=== PATIENT | female | born 1955 | race Caucasian/White ===

== ENCOUNTER 2016-09-02 09:53 | Inpatient (IN) ==
[2016-09-02] MEDS ORDERED: SODIUM CHLORIDE 0.9% 500 ML IV STA (10:24)
[2016-09-02 10:34] LABS: Basophils # 0.1 10*3/uL (0.0-0.2); Basophils % 0.2 % (0.0-0.8); Hematocrit 36.9 VOL% (35.7-47.0); Hemoglobin 12.5 GM/DL (12.0-16.0); Immature Granulocytes % 0.8 %; Immature Granulocytes Absolute 0.22 #; Lymphocytes # 1.1 10*3/uL (1.4-4.0); Mean Corpuscular HGB Conc 33.9 GM/DL (32-36); Mean Corpuscular Hemoglobin 31 PG (27-34); Mean Corpuscular Volume 92.3 FL (87-102); Mean Platelet Volume 9.6 FL (9.6-12.0); Neutrophils # 24.8 10*3/uL (1.4-7.4); Platelet Count 323 10*3/uL (130-400); Red Cell Distribution Width 14.4 % (9.3-17.3); White Blood Count 28.1 10*3/uL (4.5-13.71)
[2016-09-02 10:40] LABS: Band Neutrophils 8 % (0-10); Lymphocytes 3 % (20-55); Platelet Estimate Normal; Segmented Neutrophils 86 % (50-85); Total Cells Counted 100
[2016-09-02] MEDS ORDERED: VANCOMYCIN INJ 1,000 MG in SODIUM CHLORIDE 0.9% 250 ML IV STA (10:56)
--- NOTE | 2016-09-02 11:06 | XRay Report ---
XR chest 1V portable Indication: Shortness of breath and fever. Chest one view: Comparison 01/18/2016. Patchy infiltrate left lung base is present. Right lung is clear. Heart size and mediastinal contour are within normal limits. Impression: Left basilar pneumonia. PROCEDURE INTERPRETED AT [facility] DEPARTMENT OF RADIOLOGY Final Report Signed by: Juan Carlos Miller M.D.
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
[2016-09-02] MEDS ORDERED: VANCOMYCIN 1,000 MG VIAL ONE (11:19)
[2016-09-02 11:21] LABS: Albumin 1.9 G/DL (3.4-5.0); Bilirubin,Total 0.5 MG/DL (0.2-1.0); Calcium 7.9 MG/DL (8.5-10.1); Osmolality,Calculated 296.3 MOS/KG (273-304); Potassium 3.4 MMOL/L (3.5-5.1); Total Protein 5.5 G/DL (6.4-8.3)
--- NOTE | 2016-09-02 11:38 | Hospitalist History & Physical ---
Assessment and Plan (1) Left pulmonary infiltrate on CXR Status: Acute Assessment and plan: No evidence of pulmonary contusion etc. Vigorous WBC response without fever. Current Visit: Yes (2) Chronic kidney disease with end stage renal failure on dialysis Status: Chronic Assessment and plan: Skilled Nursing dialysis with missed dialysis Thursday due to access malfunction. Euvolemic (to slightly volume contracted) with encephalopathic features. Current Visit: Yes (3) Falls frequently Status: Chronic Assessment and plan: Anxiety disorder, sedative use Current Visit: Yes History of Present Illness History of present illness: Ms. 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 She has chronic problems with falls but denies any recent thoracic injury. Today was found awake and on floor. Patient states another fall without loss of consciousness or injury. Very weak and brought to ER where initial recorded SBP was low. CXR shows opacity in left posterior lobe with blood work showing leukocytosis. She is non-smoker without cough, fever. chills. She did vomit twice last evening without abdominal pain. Home Medications Medication Instructions Recorded Confirmed Type ALPRAZolam [Xanax] 0.5 mg PO BEDTIME 01/18/16 01/24/16 History Amitriptyline [Elavil] 150 mg PO BEDTIME 01/18/16 01/24/16 History Cinacalcet [Sensipar] 30 mg PO DAILY 01/18/16 01/24/16 History Famotidine Tab [Pepcid Tab] 20 mg PO DAILY 01/18/16 01/24/16 History Metoprolol Succinate Xl [Toprol Xl] 50 mg PO BEDTIME 01/18/16 01/24/16 History Mirtazapine [Remeron] 45 mg PO BEDTIME 01/18/16 01/24/16 History Morphine Sulfate 30 mg PO BID 01/18/16 01/24/16 History Oxycodone HCl 10 mg PO DIRECTED PRN 01/18/16 01/24/16 History Verapamil Tab [Calan Tab] 180 mg PO BEDTIME 01/18/16 01/24/16 History Allergies Allergy/AdvReac Type Severity Reaction Status Date / Time Sulfa (Sulfonamide Allergy Severe Swelling Verified 01/24/16 06:18 Antibiotics) of Lip/Tongue/Throat prednisone AdvReac Intermediate MENTAL Verified 01/24/16 06:18 STATUS CHANGE Medical,Surgical,& Family Hx - Medical History Cardio: History of: Hypertension (10 years) Psychological: History of: Anxiety Disorders Renal: History of: Renal Problems (remote nephrolithiasis) Gastrointestinal: History of: GERD Musculoskeletal: History of: Musculoskeletal Problems (Chronic axial skeletal pain) - Surgical History Abdominal Surgeries: Surgical HX of: Abdominal Surgery (colon resected for stricture disease), Cholecystectomy Reproductive Surgeries: Surgical HX of;: Hysterectomy - Social History Smoking Status: Never smoker Frequency of Alcohol Use: None Type of Drug Use: None - Constitutional Constitutional: Present: anorexia, frequent falls, weakness. Absent: chills, fever(s) - Cardiovascular Cardiovascular: Absent: chest pain at rest, dyspnea, edema, palpitations - Respiratory Respiratory: Absent: cough, dyspnea, hemoptysis, wheezing - Gastrointestinal Gastrointestinal: Absent: abdominal pain, change in bowel habits, diarrhea, hematemesis, hematochezia - Neurological Neurological: Present: disequilibrium, dizziness. Absent: convulsions, syncope - Psychiatric Psychiatric: Present: anxiety Exam - Constitutional Vitals: Period Temp Pulse Resp BP Sys/Sanchez Pulse Ox Last 24 Hr 97.7 F-97.7 F 91-91 18-18 78-78/49-49 93 General appearance: normal weight - Neck Neck exam: Absent: lymphadenopathy, thyromegaly - Respiratory Respiratory exam: Present: rales (left base without egophony). Absent: rhonchi , wheezes - Cardiovascular Cardiovascular exam: Present: regular rate and rhythm, systolic murmur (2/6 aortic murmur) - GI/Abdominal GI/Abdominal exam: Present: normal bowel sounds. Absent: distended, organomegaly, tenderness - Extremities Exam Extremities exam: Absent: edema - Neurological Exam Neurological exam: Present: alert, oriented X3, other (myoclonic jerking with asterixsis) - Psychiatric Psychiatric exam: Present: normal affect, normal mood Results - Labs CBC & BMP: 09/02/16 10:23 09/02/16 10:23 - Diagnostic Findings Procedure: Chest x-ray: image reviewed by me (Normal vascularity, posterior left lung infiltrate)
[2016-09-02] MEDS ORDERED: SODIUM CHLORIDE 0.9% 500 ML IV ONE (13:31)
[2016-09-02] MEDS ORDERED: SODIUM CHLORIDE 0.9% 1,000 ML IV ONE (14:04)
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
--- NOTE | 2016-09-02 14:56 | Operative Note ---
Date of procedure: 09/02/16 Pre-op diagnosis: clotted AV access Post-op diagnosis: same Procedure: Preoperative diagnosis Clotted AV access Postoperative diagnosis Same Procedures performed Left common femoral vein straight hemodialysis catheter placement Ultrasound guidance and interpretation of images Findings Left common femoral vein is compressible was accessed with a needle. Ultrasound was used to confirm venous placement of the wire and was also confirmed by return of nonpulsatile venous blood. Seldinger technique was used to place a non-tunneled dialysis catheter. Complications None apparent Specimens None Anesthesia 10 mL 1% lidocaine local Indications Clotted AV access Description of procedure The patient was placed in her ICU bed in the supine position. The ultrasound was used to identify the vascular structures in the left groin and the common femoral vein appeared compressible. The left groin was then prepped and draped sterilely with chlorhexidine. Sterile barrier precautions were used. A timeout was called. Ultrasound was used to identify the common femoral vein and local anesthetic was administered. The vein was accessed with a needle and nonpulsatile venous blood was returned. Wire was passed easily into the venous system and the needle was removed over the wire. Incision was made alongside the wire with an 11 blade scalpel and a dilator was used with Seldinger technique to dilate the subcutaneous tissues. A dialysis catheter was then placed over the wire and threaded easily. Both ports returned blood easily after the wire was removed. An additional accessory port was also accessed and returned blood easily. The catheter was flushed with saline and then a heparin lock was performed. Catheter was sewn in place with 3-0 silk sutures and a Biopatch sterile dressing was placed a Tegaderm. The patient tolerated the procedure well. Postoperative plan Resuming hemodialysis Implants: 20cm straight hemodialysis catheter Anesthesia: local Surgeon / Physician: Jorge Gaston Estimated blood loss: none Specimens: none sent Condition: critical Disposition: no change Results - Labs CBC & BMP: 09/02/16 10:23 09/02/16 10:23 Discharge Plan - Discharge Medications No Action Cinacalcet [Sensipar] 30 mg PO DAILY Oxycodone HCl 10 mg PO DIRECTED PRN PRN Reason: Pain Morphine Sulfate 30 mg PO BID Verapamil Tab [Calan Tab] 180 mg PO BEDTIME Famotidine Tab [Pepcid Tab] 20 mg PO DAILY Mirtazapine [Remeron] 45 mg PO BEDTIME Metoprolol Succinate Xl [Toprol Xl] 50 mg PO BEDTIME Amitriptyline [Elavil] 150 mg PO BEDTIME ALPRAZolam [Xanax] 0.5 mg PO BEDTIME - Follow Up or Referral - Forms/Instructions
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
[2016-09-02] MEDS ORDERED: HEPARIN 10,000 UNIT/10 ML VIAL IV SCH (16:30)
[2016-09-02] MEDS ORDERED: HEPARIN 10,000 UNIT/10 ML VIAL IV ONE (17:00)
[2016-09-02] MEDS: cefTRIAXone 1,000 MG in SODIUM CHLORIDE 0.9% 100 ML IV SCH (17:10)
--- NOTE | 2016-09-02 17:55 | Dialysis Note ---
Dialysis Note - Dialysis Note Pt seen on dialysis. More alert. Still hypotensive. Rocephin infusing. Myoclonic jerks less frequent. Continue routine sepsis protocol. Bld cultures pending. Next scheduled routine CHD on .
[2016-09-02] MEDS ORDERED: VERAPAMIL SR 180 MG TABLET PO SCH (21:00)
[2016-09-02] MEDS ORDERED: MORPHINE ER 30 MG TABLET PO SCH (21:00)
[2016-09-02] MEDS ORDERED: AMITRIPTYLINE 100 MG TABLET PO SCH (21:00)
[2016-09-02] MEDS: MIRTAZAPINE 15 MG TABLET PO SCH (21:19)
[2016-09-02] MEDS: ALPRAZolam 0.5 MG TABLET PO SCH (21:24)
[2016-09-03] MEDS: PHENYLEPHRINE DRIP 40 MG/250 ML PREMIX IV SCH ×2 (01:20→17:56)
[2016-09-03 06:17] LABS: Basophils % 0.1 % (0.0-0.8); Hematocrit 36.1 VOL% (35.7-47.0); Hemoglobin 12.2 GM/DL (12.0-16.0); Immature Granulocytes % 0.6 %; Immature Granulocytes Absolute 0.15 #; Lymphocytes # 1.3 10*3/uL (1.4-4.0); Lymphocytes % 5.3 % (21.3-54.2); Mean Corpuscular HGB Conc 33.8 GM/DL (32-36); Mean Corpuscular Hemoglobin 32 PG (27-34); Mean Corpuscular Volume 93.3 FL (87-102); Mean Platelet Volume 9.5 FL (9.6-12.0); Monocytes # 1.8 10*3/uL (0.11-0.8); Monocytes % 7.2 % (1.7-12.7); Neutrophils # 21.9 10*3/uL (1.4-7.4); Neutrophils % 86.8 % (38.7-73.9); Platelet Count 251 10*3/uL (130-400); Red Blood Count 3.87 10*6/uL (3.8-5.5); Red Cell Distribution Width 14.6 % (9.3-17.3); White Blood Count 25.2 10*3/uL (4.5-13.71)
[2016-09-03 06:42] LABS: Band Neutrophils 6 % (0-10); Burr Cells Slight; Elliptocytes Few; Hypochromasia 1+; Lymphocytes 3 % (20-55); Platelet Estimate Adequate; Segmented Neutrophils 84 % (50-85); Total Cells Counted 100
[2016-09-03 08:45] LABS: Albumin 1.8 G/DL (3.4-5.0); Calcium 8.7 MG/DL (8.5-10.1); Osmolality,Calculated 282.7 MOS/KG (273-304); Phosphorous 3.8 MG/DL (2.5-4.9); Potassium 3.1 MMOL/L (3.5-5.1)
[2016-09-03] MEDS: CINACALCET 30 MG TABLET PO SCH (09:14)
[2016-09-03] MEDS: FAMOTIDINE 20 MG TABLET PO SCH (09:14)
--- NOTE | 2016-09-03 09:21 | Hospitalist Progress Note ---
Assessment and Plan (1) Left pulmonary infiltrate on CXR Status: Acute Assessment and plan: Impression: #1. Left lower lobe infiltrate, probable pneumonia #2. End-stage renal disease #3. Dialysis access failure #4. Chronic pain #5. Hypotension, pressor dependent #6. Pressure ulcer, present on admission Plan: Skin care consult for evaluation of the pressure ulcer. Continue vasopressors for now. Await surgical decision regarding timing of vascular access revision. Continue antibiotics for pulmonary infiltrate. Current Visit: Yes Hospitalist: Subjective Interval history: Follow-up end-stage renal disease, pneumonia, and chronic pain. The patient says that she is thirsty. Apparently, her dialysis access has clotted, and there is a possibility of access revision today. She's had some cough and some mild dyspnea. She has not had any sputum production. There is no fever at home. Exam - Constitutional Vitals: Period Temp Pulse Resp BP Sys/Sanchez Pulse Ox Last 24 Hr 97.2 F-98.7 F 90-124 12-23 74-126/42-81 93-100 Blood pressure remains pressor dependent. Heart is regular with no murmur or gallop. Chest is fairly clear. Abdomen is soft without any mass or tenderness. She has an irregular pressure ulcer that appears to be stage II or 3 at the coccyx. Results - Labs CBC & BMP: 09/03/16 05:22 09/03/16 05:22 Lab Results: I have reviewed the past 24 hour labs Specialty Discharge - Follow Up or Referrals - Discharge Medications No Action Cinacalcet [Sensipar] 30 mg PO DAILY Oxycodone HCl 10 mg PO DIRECTED PRN PRN Reason: Pain Morphine Sulfate 30 mg PO BID Verapamil Tab [Calan Tab] 180 mg PO BEDTIME Famotidine Tab [Pepcid Tab] 20 mg PO DAILY Mirtazapine [Remeron] 45 mg PO BEDTIME Metoprolol Succinate Xl [Toprol Xl] 50 mg PO BEDTIME Amitriptyline [Elavil] 150 mg PO BEDTIME ALPRAZolam [Xanax] 0.5 mg PO BEDTIME
--- NOTE | 2016-09-03 09:57 | Physician Query Form ---
CLICK EDIT DOCUMENT TO SELECT QUERY ANSWER --> OK --> SIGN Agustina Sanders RN, CCDS Certified Clinical Blood Donor Unit Assistant W) [phone] (f) [phone] [email or web address] PROVIDERS: Make your selection(s) from the choices in EACH section by typing an "x" and enter comments in the comment section. Please use your independent medical judgment in providing your response. This request does not imply that any particular answer is desired or expected. CLINICAL INDICATORS: (Providers should not edit this section) The medical record indicates that the patient was admitted with Sepsis, BP of 78 /49, later the patient was given 1500 cc bolus, on the : Hypotension is mentioned and the patient was placed on ANDERS. Please clarify which, if any, of the following is the etiology of the above symptoms and treatment rendered: ( ) Septic shock ( ) Hypovolemic shock ( ) Cardiogenic shock ( ) Hemorrhagic shock ( ) Traumatic shock ( ) Shock due to, please specify etiology: ( ) Shock, unknown etiology ( ) Drug induced, please specify substance: ( ) Iatrogenic Hypotension ( ) Orthostatic Hypotension ( x) Hypotension, unknown etiology ( ) Other, please specify: ( ) Clinically unable to determine COMMENTS: Use of terms such as suspected, likely, or probable (associated with a specific diagnosis that is being evaluated, monitored, or treated as if it exists) are acceptable and can be restated in the discharge summary if not ruled out. MTDD
--- NOTE | 2016-09-03 10:24 | EKG Report ---
Stationary ECG Study [facility] ER Test Date: 09/02/2016 9:59:26 AM Pat Name: CHASE NAVA Department: Room: 122 Gender: F Cash Accounting Clerk: MILAN : 1955 Requested by: Elijah Peralta Order Number: [id number] Reading MD: DAVID WELDON Intervals [place] Rate: 91 P: 53 VA: 189 QRS: 14 QRSD: 90 T: 32 QT: 378 QTc: 427 Interpretive Statements SINUS RHYTHM at 91 bpm Suggests old anterior myocardial infarction possible old inferior myocardial infarction NST Electronically Signed On 09-03-16 15:54:36 [employer] by DAVID WELDON [email or web address]
[2016-09-03] MEDS: oxyCODONE IR 5 MG TABLET PO PRN ×2 (10:54→20:10)
--- NOTE | 2016-09-03 13:02 | Nephrology Progress Note ---
Nephrology - PN: Subj Interval history: Pt still requiring some pressor support this am. HD yesterday, euvolemic, myoclonic jerks resolved. Pt more alert today. Denies pain. Exam (PN)-Nephrology - Vital Signs Vital signs: Period Temp Pulse Resp BP Sys/Sanchez Pulse Ox Last 24 Hr 97.2 F-98.7 F 90-124 12-24 74-126/42-81 93-100 - General Appearance General appearance: well-developed, chronically ill EENT: ATNC, PERRL Neck: no JVD, no thyromegaly Cardiology: no murmurs, no rub, no edema Gastrointestinal: normoactive bowel sounds, no tenderness Integumentary: no rash, warm and dry Neurologic: no focal deficit, no asterixis, alert and oriented x3 Musculoskeletal: no deformities, no erythema Psychiatric: mood/affect appropriate, cooperative - Lab 09/03/16 05:22 09/03/16 05:22 Most recent lab results Calcium 8.7 MG/DL (8.5-10.1) 09/03/16 05:22 Phosphorus 3.8 MG/DL (2.5-4.9) 09/03/16 05:22 Assessment and Plan (1) Sepsis Problem details: No acute indication for dialysis today. Status: Acute Assessment and plan: Continue empiric antibiotics pending culture results. Surgery for clotted/? infected graft when stable. Current Visit: Yes (2) Chronic kidney disease with end stage renal failure on dialysis Problem details: Uremic symptoms of myoclonus. HD today, no UF Status: Chronic Current Visit: Yes (3) Clotted renal dialysis AV graft Status: Acute Current Visit: Yes Specialty Discharge - Follow Up or Referrals - Discharge Medications No Action Cinacalcet [Sensipar] 30 mg PO DAILY Oxycodone HCl 10 mg PO DIRECTED PRN PRN Reason: Pain Morphine Sulfate 30 mg PO BID Verapamil Tab [Calan Tab] 180 mg PO BEDTIME Famotidine Tab [Pepcid Tab] 20 mg PO DAILY Mirtazapine [Remeron] 45 mg PO BEDTIME Metoprolol Succinate Xl [Toprol Xl] 50 mg PO BEDTIME Amitriptyline [Elavil] 150 mg PO BEDTIME ALPRAZolam [Xanax] 0.5 mg PO BEDTIME
[2016-09-03] MEDS: cefTRIAXone 1,000 MG in SODIUM CHLORIDE 0.9% 100 ML IV SCH (17:54)
[2016-09-03] MEDS: MIRTAZAPINE 15 MG TABLET PO SCH (20:09)
[2016-09-03] MEDS: ALPRAZolam 0.5 MG TABLET PO SCH (20:11)
[2016-09-03] MEDS ORDERED: AMITRIPTYLINE 50 MG TABLET PO SCH (21:00)
[2016-09-04] MEDS ORDERED: VANCOMYCIN INJ 1,000 MG in SODIUM CHLORIDE 0.9% 250 ML IV ONE ×2 (06:05→09:00)
[2016-09-04] MEDS ORDERED: GENTAMICIN INJ 80 MG in PREMIX 1 EACH IV ONE ×2 (06:06→11:00)
[2016-09-04 06:09] LABS: Albumin 1.7 G/DL (3.4-5.0); Calcium 8.1 MG/DL (8.5-10.1); Osmolality,Calculated 289.7 MOS/KG (273-304); Potassium 3.3 MMOL/L (3.5-5.1)
--- NOTE | 2016-09-04 06:32 | Nephrology Progress Note ---
Nephrology - PN: Subj Interval history: The patient is awake and alert states she's feeling okay. However, she remains on pressor medications. UVC is noted to be elevated. Blood cultures have been negative. Exam (PN)-Nephrology - Vital Signs Vital signs: Period Temp Pulse Resp BP Sys/Sanchez Pulse Ox Last 24 Hr 97.7 F-98.6 F 90-112 15-24 81-141/52-82 94-100 - General Appearance General appearance: well-developed, well-nourished EENT: ATNC Neck: supple Respiratory: clear Cardiology: regular rate, regular rhythm Gastrointestinal: normoactive bowel sounds, no tenderness Neurologic: alert and oriented x3 Musculoskeletal: no clubbing Psychiatric: mood/affect appropriate - Lab 09/03/16 05:22 09/04/16 05:21 Most recent lab results Calcium 8.1 MG/DL (8.5-10.1) L 09/04/16 05:21 Phosphorus 3.0 MG/DL (2.5-4.9) 09/04/16 05:21 Assessment and Plan (1) Chronic kidney disease with end stage renal failure on dialysis Problem details: Uremic symptoms of myoclonus. HD today, no UF Status: Chronic Assessment and plan: Continue with scheduled hemodialysis. Dialysis today. We'll give 1 g of vancomycin 80 object today. Current Visit: Yes (2) Clotted renal dialysis AV graft Status: Acute Current Visit: Yes (3) Left pulmonary infiltrate on CXR Status: Acute Assessment and plan: Pneumonia noted. Current Visit: Yes (4) Sepsis Problem details: No acute indication for dialysis today. Status: Acute Current Visit: Yes (5) Pneumonia Status: Acute Assessment and plan: Currently on broad-spectrum antibiotics continues to have leukocytosis. Current Visit: Yes Specialty Discharge - Follow Up or Referrals - Discharge Medications No Action Cinacalcet [Sensipar] 30 mg PO DAILY Oxycodone HCl 10 mg PO DIRECTED PRN PRN Reason: Pain Morphine Sulfate 30 mg PO BID Verapamil Tab [Calan Tab] 180 mg PO BEDTIME Famotidine Tab [Pepcid Tab] 20 mg PO DAILY Mirtazapine [Remeron] 45 mg PO BEDTIME Metoprolol Succinate Xl [Toprol Xl] 50 mg PO BEDTIME Amitriptyline [Elavil] 150 mg PO BEDTIME ALPRAZolam [Xanax] 0.5 mg PO BEDTIME
[2016-09-04 07:27] LABS: Basophils % 0.1 % (0.0-0.8); Eosinophils % 0.1 % (0.00-10.9); Hematocrit 38.2 VOL% (35.7-47.0); Hemoglobin 12.5 GM/DL (12.0-16.0); Immature Granulocytes % 0.6 %; Immature Granulocytes Absolute 0.11 #; Lymphocytes # 1.2 10*3/uL (1.4-4.0); Lymphocytes % 6.3 % (21.3-54.2); Mean Corpuscular HGB Conc 32.7 GM/DL (32-36); Mean Corpuscular Hemoglobin 31 PG (27-34); Mean Corpuscular Volume 94.3 FL (87-102); Mean Platelet Volume 9.3 FL (9.6-12.0); Monocytes # 1.1 10*3/uL (0.11-0.8); Monocytes % 6.1 % (1.7-12.7); Neutrophils % 86.8 % (38.7-73.9); Platelet Count 228 10*3/uL (130-400); Red Blood Count 4.05 10*6/uL (3.8-5.5); Red Cell Distribution Width 14.5 % (9.3-17.3); White Blood Count 18.5 10*3/uL (4.5-13.71)
--- NOTE | 2016-09-04 08:44 | Hospitalist Progress Note ---
Assessment and Plan (1) Left pulmonary infiltrate on CXR Status: Acute Assessment and plan: Impression: #1. Left lower lobe infiltrate, probable pneumonia #2. End-stage renal disease #3. Dialysis access failure #4. Chronic pain #5. Hypotension, pressor dependent #6. Pressure ulcer, present on admission Plan: Continue current care. We're awaiting revision of her access device. She will need to stay in the ICU as long as she is receiving vasopressors. Current Visit: Yes Hospitalist: Subjective Interval history: Follow-up pneumonia, end-stage renal disease, and chronic pain. The patient says that she feels better. She apparently did not have her graft declotted today, and I don't see that she is on the schedule for that today either. She remains pressor dependent, although her systolic blood pressure is around 120 currently. She offers no complaints, except to say that she is hungry. She continues on antibiotics for the pneumonia. Exam - Constitutional Vitals: Period Temp Pulse Resp BP Sys/Sanchez Pulse Ox Last 24 Hr 97.8 F-98.8 F 90-112 15-24 81-141/55-82 94-100 She remains afebrile. Heart is regular with a 2/6 systolic murmur. Chest is fairly clear. Results - Labs CBC & BMP: 09/04/16 06:26 09/04/16 05:21 Lab Results: I have reviewed the past 24 hour labs Specialty Discharge - Follow Up or Referrals - Discharge Medications No Action Cinacalcet [Sensipar] 30 mg PO DAILY Oxycodone HCl 10 mg PO DIRECTED PRN PRN Reason: Pain Morphine Sulfate 30 mg PO BID Verapamil Tab [Calan Tab] 180 mg PO BEDTIME Famotidine Tab [Pepcid Tab] 20 mg PO DAILY Mirtazapine [Remeron] 45 mg PO BEDTIME Metoprolol Succinate Xl [Toprol Xl] 50 mg PO BEDTIME Amitriptyline [Elavil] 150 mg PO BEDTIME ALPRAZolam [Xanax] 0.5 mg PO BEDTIME
[2016-09-04] MEDS: FAMOTIDINE 20 MG TABLET PO SCH (08:55)
[2016-09-04] MEDS: CINACALCET 30 MG TABLET PO SCH (08:56)
[2016-09-04] MEDS: oxyCODONE IR 5 MG TABLET PO PRN ×2 (08:59→21:57)
[2016-09-04] MEDS ORDERED: oxyCODONE IR 5 MG TABLET PO PRN (13:26)
--- NOTE | 2016-09-04 16:24 | Dialysis Note ---
Dialysis Note - Dialysis Note This patient seen on dialysis she's tolerating the procedure blood pressure is 122/80.
[2016-09-04] MEDS: cefTRIAXone 1,000 MG in SODIUM CHLORIDE 0.9% 100 ML IV SCH (17:23)
[2016-09-04] MEDS: AMITRIPTYLINE 25 MG TABLET PO SCH (21:57)
[2016-09-04] MEDS: ALPRAZolam 0.5 MG TABLET PO SCH (21:57)
[2016-09-04] MEDS: MIRTAZAPINE 15 MG TABLET PO SCH (21:57)
[2016-09-04] MEDS: PHENYLEPHRINE DRIP 40 MG/250 ML PREMIX IV SCH (21:58)
[2016-09-05] MEDS: PHENYLEPHRINE DRIP 40 MG/250 ML PREMIX IV SCH (05:59)
--- NOTE | 2016-09-05 06:42 | Nephrology Progress Note ---
Nephrology - PN: Subj Interval history: Patient is resting comfortably. She was able to tolerate dialysis on yesterday. Her blood pressure has been stable off pressors. No fevers. Exam (PN)-Nephrology - Vital Signs Vital signs: Period Temp Pulse Resp BP Sys/Sanchez Pulse Ox Last 24 Hr 98 F-98.8 F 95-114 15-27 96-132/61-98 93-100 - General Appearance General appearance: well-developed, well-nourished EENT: ATNC Neck: supple Respiratory: clear Cardiology: no edema, regular rate, regular rhythm Gastrointestinal: normoactive bowel sounds, no tenderness Neurologic: CN 3-12 intact Musculoskeletal: no clubbing Psychiatric: mood/affect appropriate - Lab 09/04/16 06:26 09/04/16 05:21 Most recent lab results Calcium 8.1 MG/DL (8.5-10.1) L 09/04/16 05:21 Phosphorus 3.0 MG/DL (2.5-4.9) 09/04/16 05:21 Assessment and Plan (1) Chronic kidney disease with end stage renal failure on dialysis Problem details: Uremic symptoms of myoclonus. HD today, no UF Status: Chronic Assessment and plan: Continue with scheduled hemodialysis. Current Visit: Yes (2) Clotted renal dialysis AV graft Status: Acute Current Visit: Yes (3) Left pulmonary infiltrate on CXR Status: Acute Assessment and plan: Pneumonia noted. Current Visit: Yes (4) Sepsis Problem details: No acute indication for dialysis today. Status: Acute Current Visit: Yes (5) Pneumonia Status: Acute Assessment and plan: Currently on broad-spectrum antibiotics Current Visit: Yes Specialty Discharge - Follow Up or Referrals - Discharge Medications No Action Cinacalcet [Sensipar] 30 mg PO DAILY Oxycodone HCl 10 mg PO DIRECTED PRN PRN Reason: Pain Morphine Sulfate 30 mg PO BID Verapamil Tab [Calan Tab] 180 mg PO BEDTIME Famotidine Tab [Pepcid Tab] 20 mg PO DAILY Mirtazapine [Remeron] 45 mg PO BEDTIME Metoprolol Succinate Xl [Toprol Xl] 50 mg PO BEDTIME Amitriptyline [Elavil] 150 mg PO BEDTIME ALPRAZolam [Xanax] 0.5 mg PO BEDTIME
[2016-09-05 06:49] LABS: Basophils % 0.2 % (0.0-0.8); Eosinophils # 0.1 10*3/uL (0.0-0.87); Eosinophils % 0.7 % (0.00-10.9); Hematocrit 36.5 VOL% (35.7-47.0); Immature Granulocytes % 0.6 %; Immature Granulocytes Absolute 0.08 #; Lymphocytes % 7.6 % (21.3-54.2); Mean Corpuscular HGB Conc 32.9 GM/DL (32-36); Mean Corpuscular Hemoglobin 31 PG (27-34); Mean Corpuscular Volume 92.6 FL (87-102); Mean Platelet Volume 9.5 FL (9.6-12.0); Monocytes # 1.1 10*3/uL (0.11-0.8); Monocytes % 8.2 % (1.7-12.7); Neutrophils % 82.7 % (38.7-73.9); Platelet Count 207 10*3/uL (130-400); Red Blood Count 3.94 10*6/uL (3.8-5.5); Red Cell Distribution Width 14.5 % (9.3-17.3); White Blood Count 13.3 10*3/uL (4.5-13.71)
[2016-09-05 07:19] LABS: Albumin 1.7 G/DL (3.4-5.0); Calcium 8.4 MG/DL (8.5-10.1); Osmolality,Calculated 287.8 MOS/KG (273-304); Phosphorous 2.4 MG/DL (2.5-4.9); Potassium 3.3 MMOL/L (3.5-5.1)
--- NOTE | 2016-09-05 08:50 | Hospitalist Progress Note ---
Assessment and Plan (1) Left pulmonary infiltrate on CXR Status: Acute Assessment and plan: Impression: #1. Left lower lobe infiltrate, probable pneumonia #2. End-stage renal disease #3. Dialysis access failure #4. Chronic pain #5. Hypotension, now resolved. Probably related to pneumonia. After further study, she was probably in septic shock from the pneumonia when she presented to the hospital #6. Pressure ulcer, present on admission Plan: Recheck chest x-ray. Transfer to floor. Continue dialysis per nephrology. Will notify surgery that her infection is improving, and they may consider dialysis access revision. Current Visit: Yes Hospitalist: Subjective Interval history: Follow-up probable left lower lobe pneumonia, end-stage renal disease, dialysis access failure, chronic pain, and pressure ulcer. The patient continues to improve. She is off of vasopressors now. Her white count is trending down. She continues on dialysis. It does not appear that surgery has seen her for consideration of access revision. In any event, she appears stable enough to transfer to the floor. She is tolerating a diet. She denies any worsening cough or dyspnea. Exam - Constitutional Vitals: Period Temp Pulse Resp BP Sys/Sanchez Pulse Ox Last 24 Hr 97.7 F-98.2 F 95-114 15-27 96-132/61-98 93-100 She remains afebrile. Heart is regular with no murmur or gallop. Lungs are fairly clear. Abdomen is soft with no mass or tenderness. Results - Labs CBC & BMP: 09/05/16 05:53 09/05/16 05:53 Lab Results: I have reviewed the past 24 hour labs Specialty Discharge - Follow Up or Referrals - Discharge Medications No Action Cinacalcet [Sensipar] 30 mg PO DAILY Oxycodone HCl 10 mg PO DIRECTED PRN PRN Reason: Pain Morphine Sulfate 30 mg PO BID Verapamil Tab [Calan Tab] 180 mg PO BEDTIME Famotidine Tab [Pepcid Tab] 20 mg PO DAILY Mirtazapine [Remeron] 45 mg PO BEDTIME Metoprolol Succinate Xl [Toprol Xl] 50 mg PO BEDTIME Amitriptyline [Elavil] 150 mg PO BEDTIME ALPRAZolam [Xanax] 0.5 mg PO BEDTIME
[2016-09-05] MEDS: CINACALCET 30 MG TABLET PO SCH (09:07)
[2016-09-05] MEDS: FAMOTIDINE 20 MG TABLET PO SCH (09:07)
[2016-09-05] MEDS: oxyCODONE IR 5 MG TABLET PO PRN (16:42)
[2016-09-05] MEDS: cefTRIAXone 1,000 MG in SODIUM CHLORIDE 0.9% 100 ML IV SCH (16:44)
--- NOTE | 2016-09-05 16:58 | XRay Report ---
XR chest 1V portable Indication: Cough. Comparison: Chest x-ray 09/02/2016 Technique: Portable AP chest was performed. Findings: Airspace opacities in the left lung base overlying the left hemidiaphragm has worsened since the comparison study suggesting worsening atelectasis and/or infection. Chest is otherwise stable. Lungs otherwise are clear. Impression: 1. Worsening atelectasis and/or infection within the left lung base is suggested. 09/05/2016 4:55 PM PROCEDURE INTERPRETED AT [facility] DEPARTMENT OF RADIOLOGY Final Report Signed by: Dr. David Sanders
[2016-09-05] MEDS: MIRTAZAPINE 15 MG TABLET PO SCH (20:29)
[2016-09-05] MEDS: ALPRAZolam 0.5 MG TABLET PO SCH (20:29)
[2016-09-05] MEDS: AMITRIPTYLINE 25 MG TABLET PO SCH (20:29)
[2016-09-06 06:28] LABS: Basophils % 0.2 % (0.0-0.8); Eosinophils # 0.1 10*3/uL (0.0-0.87); Eosinophils % 0.7 % (0.00-10.9); Hematocrit 35.2 VOL% (35.7-47.0); Hemoglobin 11.7 GM/DL (12.0-16.0); Immature Granulocytes % 1.2 %; Immature Granulocytes Absolute 0.12 #; Lymphocytes # 0.8 10*3/uL (1.4-4.0); Lymphocytes % 8.1 % (21.3-54.2); Mean Corpuscular HGB Conc 33.2 GM/DL (32-36); Mean Corpuscular Hemoglobin 31 PG (27-34); Mean Corpuscular Volume 93.9 FL (87-102); Mean Platelet Volume 9.5 FL (9.6-12.0); Monocytes # 1.2 10*3/uL (0.11-0.8); Monocytes % 11.8 % (1.7-12.7); Neutrophils # 7.6 10*3/uL (1.4-7.4); Platelet Count 194 10*3/uL (130-400); Red Blood Count 3.75 10*6/uL (3.8-5.5); Red Cell Distribution Width 14.5 % (9.3-17.3); White Blood Count 9.8 10*3/uL (4.5-13.71)
[2016-09-06 06:58] LABS: Albumin 1.6 G/DL (3.4-5.0); Calcium 8.4 MG/DL (8.5-10.1); Phosphorous 2.5 MG/DL (2.5-4.9); Potassium 4.1 MMOL/L (3.5-5.1)
[2016-09-06] MEDS: CINACALCET 30 MG TABLET PO SCH (08:21)
[2016-09-06] MEDS: FAMOTIDINE 20 MG TABLET PO SCH (08:21)
[2016-09-06] MEDS ORDERED: ALTEPLASE 2 MG VIAL IV ONE (10:00)
--- NOTE | 2016-09-06 11:32 | Nephrology Progress Note ---
Nephrology - PN: Subj Interval history: She is seen during dialysis. Problems with blood flow with her left femoral catheter. It has been Activased. Exam (PN)-Nephrology - Vital Signs Vital signs: Period Temp Pulse Resp BP Sys/Sanchez Pulse Ox Last 24 Hr 98.2 F-99.4 F 102-111 16-18 120-140/72-84 92-96 Exam: ENT: Normal Cardiovascular: Regular rate and rhythm. No murmur rub or gallop Lungs: Clear Extremities: No edema - Lab 09/06/16 05:53 09/06/16 05:53 Most recent lab results Calcium 8.4 MG/DL (8.5-10.1) L 09/06/16 05:53 Phosphorus 2.5 MG/DL (2.5-4.9) 09/06/16 05:53 Assessment and Plan (1) Chronic kidney disease with end stage renal failure on dialysis Problem details: Uremic symptoms of myoclonus. HD today, no UF Status: Chronic Assessment and plan: 61-year-old woman with: * ESRD. Seen during dialysis. Left femoral catheter functioning poorly. If Activase is unsuccessful, surgery will be consulted * Pneumonia * Hypertension Current Visit: Yes (2) Left pulmonary infiltrate on CXR Status: Acute Current Visit: Yes (3) Pneumonia Status: Acute Current Visit: Yes Specialty Discharge - Follow Up or Referrals - Discharge Medications No Action Cinacalcet [Sensipar] 30 mg PO DAILY Oxycodone HCl 10 mg PO DIRECTED PRN PRN Reason: Pain Morphine Sulfate 30 mg PO BID Verapamil Tab [Calan Tab] 180 mg PO BEDTIME Famotidine Tab [Pepcid Tab] 20 mg PO DAILY Mirtazapine [Remeron] 45 mg PO BEDTIME Metoprolol Succinate Xl [Toprol Xl] 50 mg PO BEDTIME Amitriptyline [Elavil] 150 mg PO BEDTIME ALPRAZolam [Xanax] 0.5 mg PO BEDTIME
[2016-09-06] MEDS: cefTRIAXone 1,000 MG in SODIUM CHLORIDE 0.9% 100 ML IV SCH (17:42)
--- NOTE | 2016-09-06 19:20 | Hospitalist Progress Note ---
Assessment and Plan (1) Chronic kidney disease with end stage renal failure on dialysis Problem details: Uremic symptoms of myoclonus. HD today, no UF Status: Chronic Assessment and plan: dialysis today for 3 hours ultrafiltration only Current Visit: Yes (2) Clotted renal dialysis AV graft Status: Acute Assessment and plan: Dr Miller will see her on Thursday and attempt declotting Current Visit: Yes (3) Sepsis Problem details: No acute indication for dialysis today. Status: Acute Assessment and plan: resolved, has LLL pneumonia and has received rocephin and gent, currently not on abx, will start zosyn and do ABG as patients mental status not at baseline Current Visit: Yes (4) Confusion Status: Acute Assessment and plan: abg on room air, bs running low, check every 4 hours no isc, check ammonia level Current Visit: Yes Hospitalist: Subjective Interval history: Patient has a clotted fistula. She had a temporary dialysis catheter placed and was having problems with clotting of the tube. Activase worked and she was able to dialyze for 3 hours today. Patient is from home and is confused. Normally is not confused at home. She is on a lot of medications some of which we have cut down on but she is not at her baseline. Will get an ABG and ammonia level on her. Dr. Gaston will see if Dr. Miller can remove the clot from her AV fistula on Thursday. Exam - Constitutional Vitals: Period Temp Pulse Resp BP Sys/Sanchez Pulse Ox Last 24 Hr 97.8 F-99.4 F 97-111 16-18 119-140/72-84 92-96 Exam: HR-tachy lungs-ctab GI-+bs, soft and nontender neuro confused and lethargy, moving all extremities psych normal mood and affect general no acute distress. Results - Labs CBC & BMP: 09/06/16 05:53 09/06/16 05:53 Lab Results: I have reviewed the past 24 hour labs Labs: blood cultures times 2 negative - Diagnostic Findings Procedure: Chest x-ray: report reviewed by me (worsening left sided atelectasis) Specialty Discharge - Follow Up or Referrals - Discharge Medications No Action Cinacalcet [Sensipar] 30 mg PO DAILY W/SUPPER Oxycodone HCl 10 mg PO BID PRN PRN Reason: Pain Morphine Sulfate 30 mg PO BID Famotidine Tab [Pepcid Tab] 20 mg PO DAILY Mirtazapine [Remeron] 45 mg PO BEDTIME Metoprolol Succinate Xl [Toprol Xl] 50 mg PO BEDTIME Amitriptyline [Elavil] 150 mg PO BEDTIME ALPRAZolam [Xanax] 0.5 mg PO BEDTIME PRN PRN Reason: Anxiety Sevelamer Carbonate Tab [Renvela Tab] 1,600 mg PO TID W/MEALS Verapamil HCl [Verapamil ER Tab] 2 tablet PO BEDTIME Tizanidine HCl [Zanaflex] 4 mg PO BEDTIME PRN PRN Reason: Spasms
[2016-09-06] MEDS: PIPERACILLIN/TAZOBACTAM 3,375 MG in SODIUM CHLORIDE 0.9% 100 ML IV SCH (20:15)
[2016-09-06] MEDS: AMITRIPTYLINE 25 MG TABLET PO SCH (20:15)
[2016-09-06] MEDS: ALPRAZolam 0.5 MG TABLET PO SCH (20:15)
[2016-09-06 20:36] LABS: ABG Base Excess -2.8 MMOL/L (-2.5-2.5); ABG HCO3 20.7 MMOL/L (20-26); ABG Oxygen Saturation 97.5 % (95-100); ABG PCO2 31.4 MM HG (35-48); ABG PH 7.436 (7.35-7.45); ABG PO2 96.7 MM HG (80-95); ABG TCO2 21.6 MMOL/L (23-27); Allen Test Positive
[2016-09-07 05:50] LABS: Basophils % 0.2 % (0.0-0.8); Eosinophils # 0.2 10*3/uL (0.0-0.87); Hematocrit 29.1 VOL% (35.7-47.0); Hemoglobin 9.8 GM/DL (12.0-16.0); Immature Granulocytes % 1.5 %; Immature Granulocytes Absolute 0.14 #; Lymphocytes % 10.2 % (21.3-54.2); Mean Corpuscular HGB Conc 33.7 GM/DL (32-36); Mean Corpuscular Hemoglobin 31 PG (27-34); Mean Corpuscular Volume 92.1 FL (87-102); Mean Platelet Volume 9.7 FL (9.6-12.0); Monocytes # 1.1 10*3/uL (0.11-0.8); Monocytes % 11.9 % (1.7-12.7); Neutrophils % 74.2 % (38.7-73.9); Platelet Count 159 10*3/uL (130-400); Red Blood Count 3.16 10*6/uL (3.8-5.5); Red Cell Distribution Width 14.5 % (9.3-17.3); White Blood Count 9.4 10*3/uL (4.5-13.71)
[2016-09-07] MEDS: FAMOTIDINE 20 MG TABLET PO SCH (09:30)
[2016-09-07] MEDS: CINACALCET 30 MG TABLET PO SCH (09:30)
[2016-09-07] MEDS: PIPERACILLIN/TAZOBACTAM 3,375 MG in SODIUM CHLORIDE 0.9% 100 ML IV SCH ×2 (09:33→21:58)
[2016-09-07] MEDS ORDERED: SORBITOL 30 ML BOTTLE PO PRN (12:39)
--- NOTE | 2016-09-07 12:39 | Nephrology Progress Note ---
Nephrology - PN: Subj Interval history: No shortness of breath. Complains of constipation. Exam (PN)-Nephrology - Vital Signs Vital signs: Period Temp Pulse Resp BP Sys/Sanchez Pulse Ox Last 24 Hr 96.8 F-97.8 F 92-100 16-19 112-122/66-75 93-95 Exam: ENT: Normal Cardiovascular: Regular rate and rhythm. No murmur rub or gallop Lungs: Clear Extremities: No edema - Lab 09/07/16 05:21 09/06/16 05:53 Most recent lab results ABG pH 7.436 (7.35-7.45) 09/06/16 20:28 ABG pCO2 31.4 MM HG (35-48) L 09/06/16 20:28 ABG pO2 96.7 MM HG (80-95) H 09/06/16 20:28 ABG HCO3 20.7 MMOL/L (20-26) 09/06/16 20:28 ABG O2 Saturation 97.5 % (95-100) 09/06/16 20:28 Calcium 8.4 MG/DL (8.5-10.1) L 09/06/16 05:53 Phosphorus 2.5 MG/DL (2.5-4.9) 09/06/16 05:53 Assessment and Plan (1) Chronic kidney disease with end stage renal failure on dialysis Problem details: Uremic symptoms of myoclonus. HD today, no UF Status: Chronic Assessment and plan: 61-year-old woman with: * ESRD. He dialyzed yesterday * Pneumonia * Hypertension * Constipation. Likely due to pain medications. She states sorbitol usually helps Current Visit: Yes (2) Left pulmonary infiltrate on CXR Status: Acute Current Visit: Yes (3) Pneumonia Status: Acute Current Visit: Yes Specialty Discharge - Follow Up or Referrals - Discharge Medications No Action Cinacalcet [Sensipar] 30 mg PO DAILY W/SUPPER Oxycodone HCl 10 mg PO BID PRN PRN Reason: Pain Morphine Sulfate 30 mg PO BID Famotidine Tab [Pepcid Tab] 20 mg PO DAILY Mirtazapine [Remeron] 45 mg PO BEDTIME Metoprolol Succinate Xl [Toprol Xl] 50 mg PO BEDTIME Amitriptyline [Elavil] 150 mg PO BEDTIME ALPRAZolam [Xanax] 0.5 mg PO BEDTIME PRN PRN Reason: Anxiety Sevelamer Carbonate Tab [Renvela Tab] 1,600 mg PO TID W/MEALS Verapamil HCl [Verapamil ER Tab] 2 tablet PO BEDTIME Tizanidine HCl [Zanaflex] 4 mg PO BEDTIME PRN PRN Reason: Spasms
--- NOTE | 2016-09-07 14:47 | Hospitalist Progress Note ---
Assessment and Plan - Time spent with patient Time spent with patient: Less than 30 minutes (1) ESRD (end stage renal disease) Status: Chronic Assessment and plan: Followed by nephrology and on dialysis with temporary dialysis catheter will continue management by renal service Current Visit: Yes (2) Pneumonia Status: Acute Assessment and plan: Reported infiltrate on chest x-ray and patient has no fever and WBC count improving she has been on Zosyn and continue Current Visit: Yes (3) Mass Status: Acute Assessment and plan: Patient reports constipation and abdominal pain I can see feel some mass in epigastric area I'm not sure of the pathology. I will obtain CT scan for evaluation will give miralex for constipation Current Visit: Yes Hospitalist: Subjective Interval history: Ms. Heck is a 61 year old female with end-stage renal failure on hemodialysis who was admitted dialysis with clotted avf and falls. she was reported hypotensive , dizzy light headed. she had temp dialysis cath placed and dialyzed yesterday. Still feel weak and has constipation. She has been on on zosyn for suspected pneumonia on cxr Exam - Constitutional Vitals: Period Temp Pulse Resp BP Sys/Sanchez Pulse Ox Last 24 Hr 96.8 F-97.8 F 92-100 16-19 112-122/66-75 93-95 General appearance: no acute distress - Head Head exam: Present: normal inspection, normocephalic - Eye Eye exam: Present: EOMI - Respiratory Respiratory exam: Present: clear to auscultation bilaterally - Cardiovascular Cardiovascular exam: Present: regular rate and rhythm. Absent: tachycardia - GI/Abdominal GI/Abdominal exam: Present: normal bowel sounds, mass, tenderness (tenderness / mass in epgastric area ), soft - Extremities Exam Extremities exam: Absent: edema - Back Exam Back exam: Present: other (equal strength bilaterally but seems to have some weakness bilaterally particularly in the legs) - Neurological Exam Neurological exam: Present: alert Results - Labs CBC & BMP: 09/07/16 05:21 09/06/16 05:53 Lab Results: I have reviewed the past 24 hour labs Specialty Discharge - Follow Up or Referrals - Discharge Medications No Action Cinacalcet [Sensipar] 30 mg PO DAILY W/SUPPER Oxycodone HCl 10 mg PO BID PRN PRN Reason: Pain Morphine Sulfate 30 mg PO BID Famotidine Tab [Pepcid Tab] 20 mg PO DAILY Mirtazapine [Remeron] 45 mg PO BEDTIME Metoprolol Succinate Xl [Toprol Xl] 50 mg PO BEDTIME Amitriptyline [Elavil] 150 mg PO BEDTIME ALPRAZolam [Xanax] 0.5 mg PO BEDTIME PRN PRN Reason: Anxiety Sevelamer Carbonate Tab [Renvela Tab] 1,600 mg PO TID W/MEALS Verapamil HCl [Verapamil ER Tab] 2 tablet PO BEDTIME Tizanidine HCl [Zanaflex] 4 mg PO BEDTIME PRN PRN Reason: Spasms
[2016-09-07] MEDS: POLYETHYLENE GLYCOL POWDER 17 GM PACK PO SCH (17:37)
[2016-09-07] MEDS: AMITRIPTYLINE 25 MG TABLET PO SCH ×2 (21:59→22:06)
[2016-09-07] MEDS: ALPRAZolam 0.5 MG TABLET PO SCH ×2 (21:59→22:06)
--- NOTE | 2016-09-08 08:41 | CT Report ---
CT abdomen pelvis wo con Indication: Abdominal pain. Questionable mass in the epigastrium. Comparison: None. Technique: CT of the abdomen and pelvis was performed without administration of intravenous contrast. Findings: The lack of intravenous contrast precludes complete evaluation of the abdomen in the setting of abdominal pain. This prevents complete evaluation of solid organs, vascular structures, and bowel wall. A massive amount of stool is noted throughout the large bowel. There's been prior anterior ventral hernia repair. No gross evidence of mass is demonstrated involving small or large bowel although the bowel wall appears diffusely thickened throughout the large bowel which may reflect chronic constipation. Additionally, there is a possible stricture of large bowel in the region of the upper rectum demonstrated image #[id number]. Surgical changes are noted in this region. Subsegmental atelectasis of the left lower lobe is demonstrated. Additionally a small left-sided pleural effusion. Additional airspace attenuation is noted within the lingula. Infectious process is not excluded. Gallbladder surgically absent. Liver and spleen demonstrate no evidence of acute pathology. Stomach is grossly unremarkable. Diffuse intimal calcification of the aorta is demonstrated. The kidneys are bilaterally small and demonstrate atrophy of the renal cortices. Bony structures demonstrate no evidence of acute pathology. Soft tissues and musculature the body wall demonstrate no significant abnormalities. Impression: 1. Severely distended stool-filled large bowel is demonstrated. Some areas of wall thickening along large bowel nonspecific and could reflect sequelae of chronic constipation. Chronic inflammation is suggested. 2. A stricture of large bowel is noted within the pelvis. This lies in the region of possible suture line may reflect point obstruction 4 the large bowel. This is best demonstrated image #[id number]. 3. No specific evidence of epigastric mass. 4. Infectious process is not excluded within the left lung. 5. Small left-sided pleural effusion. 6. Other findings as detailed. 09/08/2016 8:33 AM PROCEDURE INTERPRETED AT [facility] DEPARTMENT OF RADIOLOGY Final Report Signed by: Dr. David Sanders
[2016-09-08] MEDS: POLYETHYLENE GLYCOL POWDER 17 GM PACK PO SCH (08:52)
[2016-09-08] MEDS: CINACALCET 30 MG TABLET PO SCH (08:52)
[2016-09-08] MEDS: PIPERACILLIN/TAZOBACTAM 3,375 MG in SODIUM CHLORIDE 0.9% 100 ML IV SCH ×2 (08:52→20:49)
[2016-09-08] MEDS: FAMOTIDINE 20 MG TABLET PO SCH (08:52)
[2016-09-08] MEDS: LACTULOSE 20 GM/30 ML UDCUP PO PRN ×2 (10:08→20:50)
--- NOTE | 2016-09-08 10:15 | Nephrology Progress Note ---
Nephrology - PN: Subj Interval history: Pt states she is unchanged. No BM in [address] scan reveals massive amount of stool throughout the colon. No mention of mass. Exam (PN)-Nephrology - Vital Signs Vital signs: Period Temp Pulse Resp BP Sys/Sanchez Pulse Ox Last 24 Hr 97.3 F-98.2 F 90-97 16-18 118-135/67-77 93-98 - General Appearance General appearance: well-developed, chronically ill EENT: ATNC, PERRL, mucous membranes dry, hearing intact, vision intact Neck: no JVD, no thyromegaly Respiratory: no kyphosis, clear Cardiology: no murmurs, no rub, edema Gastrointestinal: normoactive bowel sounds, no tenderness Integumentary: no rash, warm and dry Neurologic: no focal deficit, no asterixis, alert and oriented x3 Musculoskeletal: no deformities, no erythema Psychiatric: mood/affect appropriate, cooperative - Lab 09/07/16 05:21 09/06/16 05:53 Most recent lab results ABG pH 7.436 (7.35-7.45) 09/06/16 20:28 ABG pCO2 31.4 MM HG (35-48) L 09/06/16 20:28 ABG pO2 96.7 MM HG (80-95) H 09/06/16 20:28 ABG HCO3 20.7 MMOL/L (20-26) 09/06/16 20:28 ABG O2 Saturation 97.5 % (95-100) 09/06/16 20:28 Calcium 8.4 MG/DL (8.5-10.1) L 09/06/16 05:53 Phosphorus 2.5 MG/DL (2.5-4.9) 09/06/16 05:53 Assessment and Plan (1) Sepsis Problem details: No growth on any cultures. WBC normal, no fever. Most likely LLL pneumonia. Status: Resolved Current Visit: Yes (2) Chronic kidney disease with end stage renal failure on dialysis Problem details: No indication for HD today. Status: Chronic Assessment and plan: Next planned HD tomorrow. Current Visit: Yes (3) Clotted renal dialysis AV graft Problem details: Will need attempt to declot. Will discuss with surgery/IR. Status: Acute Current Visit: Yes (4) Constipation Problem details: Enemas til cleared. Manual disimpaction if indicated. Status : Acute Current Visit: Yes Specialty Discharge - Follow Up or Referrals - Discharge Medications No Action Cinacalcet [Sensipar] 30 mg PO DAILY W/SUPPER Oxycodone HCl 10 mg PO BID PRN PRN Reason: Pain Morphine Sulfate 30 mg PO BID Famotidine Tab [Pepcid Tab] 20 mg PO DAILY Mirtazapine [Remeron] 45 mg PO BEDTIME Metoprolol Succinate Xl [Toprol Xl] 50 mg PO BEDTIME Amitriptyline [Elavil] 150 mg PO BEDTIME ALPRAZolam [Xanax] 0.5 mg PO BEDTIME PRN PRN Reason: Anxiety Sevelamer Carbonate Tab [Renvela Tab] 1,600 mg PO TID W/MEALS Verapamil HCl [Verapamil ER Tab] 2 tablet PO BEDTIME Tizanidine HCl [Zanaflex] 4 mg PO BEDTIME PRN PRN Reason: Spasms
--- NOTE | 2016-09-08 10:46 | Hospitalist Progress Note ---
Assessment and Plan (1) ESRD (end stage renal disease) Status: Chronic Assessment and plan: Followed by nephrology and on dialysis with temporary dialysis catheter will continue management by renal service Current Visit: Yes (2) Pneumonia Status: Acute Assessment and plan: Reported infiltrate on chest x-ray and patient has no fever and leukocytosis has resolved. she has been on Zosyn and continue Current Visit: Yes (3) Mass Status: Acute Assessment and plan: Reported to have fecal stasis/constipation we'll check his TSH continue no bowel preparation and when necessary in the deimpaction and enema Current Visit: Yes Hospitalist: Subjective Interval history: Ms. Heck is a 61 year old female with end-stage renal failure on hemodialysis who was admitted dialysis with clotted avf and falls. she was reported hypotensive , dizzy light headed. she had temp dialysis cath placed and dialyzed yesterday. . She has been on on zosyn for suspected pneumonia on cxr. She still feels weak for which PT/ OT has been consulted. She had no bowel movement for [address] scan of the abdomen was done for to evaluated mass felt on palpation. His CT abdomen revealed the colon filled with feces. Patient has some manual disimpaction and has reported to have a hard stool-like rocks. Exam - Constitutional Vitals: Period Temp Pulse Resp BP Sys/Sanchez Pulse Ox Last 24 Hr 97.3 F-98.2 F 90-97 16-18 118-135/67-77 93-98 General appearance: no acute distress - Respiratory Respiratory exam: Present: clear to auscultation bilaterally. Absent: rales, rhonchi - Cardiovascular Cardiovascular exam: Present: regular rate and rhythm. Absent: tachycardia - GI/Abdominal GI/Abdominal exam: Present: normal bowel sounds, mass (hard mass felt which is reported to be stable), soft - Extremities Exam Extremities exam: Present: edema (mild edema lower extremities) - Neurological Exam Neurological exam: Present: alert Results - Labs CBC & BMP: 09/07/16 05:21 09/06/16 05:53 Lab Results: I have reviewed the past 24 hour labs Specialty Discharge - Follow Up or Referrals - Discharge Medications No Action Cinacalcet [Sensipar] 30 mg PO DAILY W/SUPPER Oxycodone HCl 10 mg PO BID PRN PRN Reason: Pain Morphine Sulfate 30 mg PO BID Famotidine Tab [Pepcid Tab] 20 mg PO DAILY Mirtazapine [Remeron] 45 mg PO BEDTIME Metoprolol Succinate Xl [Toprol Xl] 50 mg PO BEDTIME Amitriptyline [Elavil] 150 mg PO BEDTIME ALPRAZolam [Xanax] 0.5 mg PO BEDTIME PRN PRN Reason: Anxiety Sevelamer Carbonate Tab [Renvela Tab] 1,600 mg PO TID W/MEALS Verapamil HCl [Verapamil ER Tab] 2 tablet PO BEDTIME Tizanidine HCl [Zanaflex] 4 mg PO BEDTIME PRN PRN Reason: Spasms
[2016-09-08] MEDS: ONDANSETRON 4 MG/2 ML VIAL IV PRN (11:05)
[2016-09-08] MEDS: ALPRAZolam 0.5 MG TABLET PO SCH (20:47)
[2016-09-08] MEDS: AMITRIPTYLINE 25 MG TABLET PO SCH (20:47)
[2016-09-09 08:33] LABS: Free T4 (Free Thyroxine) 0.76 NG/DL (0.76-1.46); Thyroid Stimulating Hormone 4.31 uIU/ml (0.358-3.74)
[2016-09-09] MEDS: CINACALCET 30 MG TABLET PO SCH (08:48)
[2016-09-09] MEDS: PIPERACILLIN/TAZOBACTAM 3,375 MG in SODIUM CHLORIDE 0.9% 100 ML IV SCH ×2 (08:48→18:47)
[2016-09-09] MEDS: FAMOTIDINE 20 MG TABLET PO SCH (08:48)
[2016-09-09] MEDS: POLYETHYLENE GLYCOL POWDER 17 GM PACK PO SCH (08:57)
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
--- NOTE | 2016-09-09 09:50 | Nephrology Progress Note ---
Nephrology - PN: Subj Interval history: PT appears to not be as alert today. C/O abd pain, worsened distention. No results with 2 enemas. Refused any more. Not being compliant with prescribed meds/treatments per nursing staff. Exam (PN)-Nephrology - Vital Signs Vital signs: Period Temp Pulse Resp BP Sys/Sanchez Pulse Ox Last 24 Hr 97.2 F-97.8 F 72-106 18-20 116-135/68-87 91-98 - General Appearance General appearance: well-developed, chronically ill EENT: ATNC, PERRL, mucous membranes dry, hearing intact, vision intact Neck: no JVD, no carotid bruit Respiratory: no kyphosis, clear Cardiology: no murmurs, no edema Gastrointestinal: hypoactive bowel sounds, tenderness, distended Integumentary: no rash, warm and dry Neurologic: no focal deficit, no asterixis, disoriented Musculoskeletal: no deformities, no erythema Psychiatric: depressed, cooperative - Lab 09/07/16 05:21 09/06/16 05:53 Most recent lab results ABG pH 7.436 (7.35-7.45) 09/06/16 20:28 ABG pCO2 31.4 MM HG (35-48) L 09/06/16 20:28 ABG pO2 96.7 MM HG (80-95) H 09/06/16 20:28 ABG HCO3 20.7 MMOL/L (20-26) 09/06/16 20:28 ABG O2 Saturation 97.5 % (95-100) 09/06/16 20:28 Calcium 8.4 MG/DL (8.5-10.1) L 09/06/16 05:53 Phosphorus 2.5 MG/DL (2.5-4.9) 09/06/16 05:53 Assessment and Plan (1) Chronic kidney disease with end stage renal failure on dialysis Problem details: No indication for HD today. Status: Chronic Assessment and plan: Routine CHD today. Current Visit: Yes (2) Sepsis Problem details: No growth on any cultures. WBC normal, no fever. Most likely LLL pneumonia. Status: Resolved Assessment and plan: Continue empiric antibiotics pending culture results. Surgery for clotted/? infected graft when stable. Current Visit: Yes (3) Clotted renal dialysis AV graft Problem details: Will need attempt to declot. Will discuss with surgery/IR. Status: Acute Current Visit: Yes (4) Constipation Problem details: Enemas til cleared. Manual disimpaction if indicated. Status : Acute Assessment and plan: GI consult appreciated. Current Visit: Yes Specialty Discharge - Follow Up or Referrals - Discharge Medications No Action Cinacalcet [Sensipar] 30 mg PO DAILY W/SUPPER Oxycodone HCl 10 mg PO BID PRN PRN Reason: Pain Morphine Sulfate 30 mg PO BID Famotidine Tab [Pepcid Tab] 20 mg PO DAILY Mirtazapine [Remeron] 45 mg PO BEDTIME Metoprolol Succinate Xl [Toprol Xl] 50 mg PO BEDTIME Amitriptyline [Elavil] 150 mg PO BEDTIME ALPRAZolam [Xanax] 0.5 mg PO BEDTIME PRN PRN Reason: Anxiety Sevelamer Carbonate Tab [Renvela Tab] 1,600 mg PO TID W/MEALS Verapamil HCl [Verapamil ER Tab] 2 tablet PO BEDTIME Tizanidine HCl [Zanaflex] 4 mg PO BEDTIME PRN PRN Reason: Spasms
[2016-09-09 10:01] LABS: ABG Base Excess -5.1 MMOL/L (-2.5-2.5); ABG HCO3 20.2 MMOL/L (20-26); ABG Oxygen Saturation 93.3 % (95-100); ABG PCO2 31.1 MM HG (35-48); ABG PH 7.392 (7.35-7.45); ABG PO2 71.4 MM HG (80-95); ABG TCO2 16.9 MMOL/L (23-27)
--- NOTE | 2016-09-09 10:29 | Hospitalist Progress Note ---
Assessment and Plan (1) Chronic kidney disease with end stage renal failure on dialysis Problem details: No indication for HD today. Status: Chronic Current Visit: Yes (2) Clotted renal dialysis AV graft Problem details: Will need attempt to declot. Will discuss with surgery/IR. Status: Acute Current Visit: Yes (3) Left pulmonary infiltrate on CXR Status: Acute Current Visit: Yes (4) Confusion Status: Acute Assessment and plan: send for MRI brain to r/o CVA, check ammoina level, hold [employer] sedating medications. Current Visit: Yes Hospitalist: Subjective Interval history: 61-year-old female end-stage renal disease on hemodialysis who developed infected clotted AV graft. She also has chronic pain and on several cardiac medications as developed some abdominal distention with CT showing chronic constipation. This morning is reported by nursing staff she appears to be different than she's been over the past few days with blank staring. There is no focal neurological deficits noted or any overt seizure-like activity. Exam - Constitutional Vitals: Period Temp Pulse Resp BP Sys/Sanchez Pulse Ox Last 24 Hr 97.2 F-97.8 F 71-106 18-20 116-135/68-89 91-98 General appearance: no acute distress - Head Head exam: Present: normocephalic, atraumatic - Eye Eye exam: Present: EOMI Pupils: Present: DARLENE - Respiratory Respiratory exam: Present: clear to auscultation bilaterally - Cardiovascular Cardiovascular exam: Present: regular rate and rhythm - GI/Abdominal GI/Abdominal exam: Present: distended, firm - Neurological Exam Neurological exam: Present: alert, other (but appears sluggish and slow to answering questions) - Skin Skin exam: Present: warm, intact Results - Labs CBC & BMP: 09/07/16 05:21 09/06/16 05:53 Specialty Discharge - Follow Up or Referrals - Discharge Medications No Action Cinacalcet [Sensipar] 30 mg PO DAILY W/SUPPER Oxycodone HCl 10 mg PO BID PRN PRN Reason: Pain Morphine Sulfate 30 mg PO BID Famotidine Tab [Pepcid Tab] 20 mg PO DAILY Mirtazapine [Remeron] 45 mg PO BEDTIME Metoprolol Succinate Xl [Toprol Xl] 50 mg PO BEDTIME Amitriptyline [Elavil] 150 mg PO BEDTIME ALPRAZolam [Xanax] 0.5 mg PO BEDTIME PRN PRN Reason: Anxiety Sevelamer Carbonate Tab [Renvela Tab] 1,600 mg PO TID W/MEALS Verapamil HCl [Verapamil ER Tab] 2 tablet PO BEDTIME Tizanidine HCl [Zanaflex] 4 mg PO BEDTIME PRN PRN Reason: Spasms
[2016-09-09] MEDS ORDERED: GLUCAGON 1 MG VIAL IM PRN (10:54)
--- NOTE | 2016-09-09 10:54 | XRay Report ---
XR abdomen 2V, supine and decubitus views are provided. Clinical Information: Abdominal Pain abdominal distention Comparison: None Findings: Bowel gas pattern is nonspecific and within normal limits. Mildly dilated small bowel loops are identified in the upper abdomen are suggestive of ileus or partial obstruction. There is no free air identified. Extensive fecal material is noted throughout colon, which is also borderline enlarged measuring up to 10 cm at the transverse colon. No abnormal focal soft tissue masses or calcific densities are identified in the abdomen or pelvis. Cholecystectomy clips are noted. Lung bases appear predominantly clear. A left-sided dialysis catheter is noted in the pelvis. There is no acute osseous abnormality. No suspicious osseous lesions are identified. Impression: Mild proximal small bowel dilatation may be related to ileus or small bowel partial obstruction. Extensive feces throughout the colon suggesting colonic constipation. A distal colonic obstruction is not excluded. PROCEDURE INTERPRETED AT [facility] DEPARTMENT OF RADIOLOGY Final Report Signed by: Gilberto Brownlee
--- NOTE | 2016-09-09 12:18 | Magnetic Resonance Report ---
Referring physician: Jaziel Curtis Exam: MRI brain without contrast Date: September 09, 2016 Comparison: CT brain without contrast September 01, 2011 Reason: Altered mental status, end-stage renal disease The patient is an inpatient who was admitted on September 02, 2016. Technique: MRI of the brain was performed without the use of contrast. Obtained images include sagittal T1, axial diffusion-weighted, axial FLAIR, axial T2, coronal T2, axial gradient and axial T1 sequences. A 1.5 Daily magnet was used. Findings: There is mild to moderate generalized cerebral atrophy/volume loss. A 0.9 cm focus of T2/FLAIR hyperintensity is seen within the left real radiata. This could represent chronic microvascular ischemic change or a remote lacunar infarction. Additional minimal chronic microvascular ischemic change is suspected. No hydrocephalus or midline shift is present. There is no evidence of recent intracranial hemorrhage or an acute infarction. There is a curvilinear area of T1 hyperintensity, extending along the superior margin of the corpus callosum. It measures up to 1 cm in diameter and likely represents a lipoma. Similar findings are seen on the previous CT brain study performed September 01, 2011. Major vascular flow voids are visualized, although evaluation is somewhat limited by motion artifact. The orbits and brain stem are unremarkable. The sella is mildly distended with CSF but otherwise unremarkable. The paranasal sinuses and right mastoid air cells appear clear. There is questionable minimal fluid within the left mastoid air cells. Impression: 1. Motion artifact somewhat limits evaluation. However, no acute intracranial process is identified. 2. Minimal chronic microvascular ischemic change. There could also be a remote lacunar infarction within the left real radiata. 3. 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 PROCEDURE INTERPRETED AT [facility] DEPARTMENT OF RADIOLOGY Final Report Signed by: Dr. Edwin Senior
[2016-09-09] MEDS: ONDANSETRON 4 MG/2 ML VIAL IV PRN (13:25)
--- NOTE | 2016-09-09 13:44 | XRay Report ---
Exam: XR chest 1V portable Indication: NG tube placement Comparison study: 09/05/16 chest radiograph Findings: The heart, mediastinum and bony structures are grossly stable from prior. Patchy left lung base airspace opacities are similar to prior. There is no pneumothorax or pleural effusion identified. An esophagogastric tube is noted in place which terminates in the left upper quadrant of the abdomen with the tip directed rightward Impression: Esophagogastric tube within the distal stomach. Similar appearance of the chest with patchy left basilar airspace opacities which may represent developing infectious/inflammatory infiltrates. PROCEDURE INTERPRETED AT [facility] DEPARTMENT OF RADIOLOGY Final Report Signed by: Gilberto Brownlee
[2016-09-09] MEDS: LACTULOSE 20 GM/30 ML UDCUP PO SCH ×6 (14:06→22:41)
[2016-09-09] MEDS: DESITIN 4OZ/NYSTATIN 15 GRAM MIXTURE PASTE TOP SCH ×2 (14:23→22:43)
[2016-09-09] MEDS ORDERED: ALTEPLASE 2 MG VIAL IV ONE (15:00)
--- NOTE | 2016-09-09 16:18 | Dialysis Note ---
Dialysis Note - Dialysis Note Patient seen on hemodialysis, she is tolerating this well. However she is having some problems with her catheter flow. Presently she has acceptable flow after Activase therapy. We'll continue her dialysis unchanged for now.
[2016-09-09] MEDS ORDERED: ALBUTEROL/IPRATROPIUM 3 ML NEB RESP TX ONE (17:47)
[2016-09-09] MEDS ORDERED: ALBUTEROL/IPRATROPIUM 3 ML NEB RESP TX PRN (17:47)
--- NOTE | 2016-09-09 17:57 | XRay Report ---
XR chest 1V portable Indication: Aspiration Comparison: Chest x-ray 09/09/2016 Technique: Portable AP chest was performed. Findings: Airspace opacities most noticeable in the lower left chest changed little since comparison study. Chest is otherwise stable compared to previous study. Impression: 1. No adverse interval change in the chest. Airspace opacities remain most prevalent within the left lung base. 09/09/2016 5:53 PM PROCEDURE INTERPRETED AT [facility] DEPARTMENT OF RADIOLOGY Final Report Signed by: Dr. David Sanders
--- NOTE | 2016-09-09 18:03 | Event Note ---
Nursing staff called and states that while they were cleaning Ms. Heck up and straightening her up in bed, she was lying flat and . They immediately sat her up and cleared her mouth. She became acutely dyspnic and tachycardic. Sats prior to incident were 97% on RA. Her O2 now on 4L NC is 90%. She is taking large gulping breaths and is notably struggling. She is not able to talk with me. Stat CXR was obtained. Lungs are wet and coarse bilat with severe rales. She was given stat Xopenex treatment as well with supplemental O2. We will transfer her to ICU for closer care. Nursing staff was to notify family.
[2016-09-09] MEDS ORDERED: CLINDAMYCIN INJ 900 MG in PREMIX 1 EACH IV SCH (19:00)
[2016-09-09] MEDS ORDERED: DEXTROSE 50% 25 GM/50 ML VIAL IV ONE (19:15)
[2016-09-09] MEDS ORDERED: DEXTROSE 50% 25 GM/50 ML VIAL IV PRN (19:35)
[2016-09-09 19:40] LABS: Albumin 1.8 G/DL (3.4-5.0); Bilirubin,Total 0.4 MG/DL (0.2-1.0); Calcium 9.1 MG/DL (8.5-10.1); Osmolality,Calculated 302.7 MOS/KG (273-304); Potassium 4.9 MMOL/L (3.5-5.1); Total Protein 6.2 G/DL (6.4-8.3)
[2016-09-09] MEDS ORDERED: VERAPAMIL SR 180 MG TABLET PO SCH (21:00)
--- NOTE | 2016-09-09 21:02 | Ultrasound Report ---
US venous doppler LE BI Indication: Lower extremity swelling and pain. Comparison: None. Technique: Using a transcutaneous probe, grayscale, spectral Doppler, and color Doppler images of the bilateral lower extremity venous structures were captured and stored. Grayscale images prior to and following compression were obtained. Interrogated venous structures include the bilateral common femoral vein, superficial femoral vein (proximal, mid, and distal), and popliteal vein. Findings: There is no evidence of thrombus within the interrogated venous structures. the interrogated venous segments demonstrate presence of both color flow and spectral flow. Impression: 1. No evidence of venous thrombosis. 09/09/2016 8:56 PM PROCEDURE INTERPRETED AT [facility] DEPARTMENT OF RADIOLOGY Final Report Signed by: Dr. David Sanders
--- NOTE | 2016-09-09 22:06 | CT Report ---
CT head/brain wo con Indication: Altered mental status. Comparison: None. Technique: CT of the brain was performed without administration of intravenous contrast. Findings: There is no evidence of acute intracranial mass, hemorrhage, or infarction. Generalized cerebral atrophy is present. Areas of decreased attenuation within the periventricular white matter and cerebral white matter are present which could be compatible with microvascular ischemia. 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 The basal cisterns are patent. No significant abnormality is demonstrated to involve the posterior fossa or cerebellum. Orbits and globes demonstrate no evidence of significant pathology. The paranasal sinuses are clear. No significant abnormality is demonstrated to involve the mastoid air cells. The calvarium and overlying soft tissues demonstrate no evidence of acute pathology. Impression: 1. 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 2. Mild generalized atrophy and findings compatible with microvascular ischemia. 3. No evidence of acute intracranial pathology. 09/09/2016 10:01 PM PROCEDURE INTERPRETED AT [facility] DEPARTMENT OF RADIOLOGY Final Report Signed by: Dr. David Sanders
[2016-09-09] MEDS: ALPRAZolam 0.5 MG TABLET PO SCH (22:09)
[2016-09-09] MEDS: AMITRIPTYLINE 25 MG TABLET PO SCH (22:41)
[2016-09-09] MEDS: LEVALBUTEROL 1.25 MG/3 ML NEB RESP TX SCH (23:26)
[2016-09-10] MEDS: LEVALBUTEROL 1.25 MG/3 ML NEB RESP TX SCH (00:04)
[2016-09-10] MEDS ORDERED: ETOMIDATE 20 MG/10 ML VIAL IV ONE (03:02)
[2016-09-10] MEDS ORDERED: SUCCINYLCHOLINE 200 MG/10 ML VIAL ONE (03:03)
--- NOTE | 2016-09-10 03:40 | Event Note ---
I was summoned the bedside approximately 3 a.m. Patient was getting less responsive and was having shallow breathing. We opted to intubate her. While in the process of intubating the patient she aspirated. It was significant amounts of gastric contents. She was suctioned. A pulse was lost. A code was called. She was subsequently intubated by ER physician. I conducted the code. 5 rounds of epi were given to the patient and 1 bicarbonate. A pulse was never regained. Chest compressions were continued all during this code. She had significant gastric contents come up during the code. I pronounced her at 332 a.m. on 09/10/2016
--- NOTE | 2016-09-10 03:47 | Discharge Summary ---
Hospital Course - Hospital Course Hospital Course: This patient was a 61-year-old white female with a 10 year history of renal replacement therapy who missed her dialysis due to nonfunctioning I AV access. She has chronic problems with falls but denied any recent thoracic injury. She was found awake and on the floor. Patient stated at the time of that another fall without loss of consciousness. She was very weak brought to the ER and initial blood pressure was low. Chest x-ray showed a pasty within the left posterior lobe with all leukocytosis. Patient was admitted to our service by Dr. Flood. She was found to have a decreased a clotted AV graft. She had a subsequent catheter placed that was used for dialysis. During the hospitalization was noted that patient had not had a bowel movement in quite a few days. CT scan of abdomen was done that showed massive amounts of stool. GI was consult. The felt that the fecal impaction was likely exacerbated by the chronic medical illness narcotics and poor mobility. He felt that efforts to remove from below been suboptimal. She is apparently refused take anything by mouth. And she appeared to be to develop some partial obstructive symptoms from this. The recommendation was to place NG tube and initiate lactulose from above and continue with soapsuds enemas and manual check for removal of impaction. They were cleaning his renals today after starting this lactulose. When the straightened her up in the bed she was lying flat and she aspirated she became acutely dyspneic and tachycardic. She was on 4 L nasal cannula 90% weak and He breathing and struggling. She was not able to talk. Chest x-ray was stable. She was sent to CCU for closer observation. During the night patient again to Make an was guppy breathing. When we laid her flat to intubate the patient she aspirated. Pulse was lost and a code was called. 5 rounds of therapy were given to the patient and 1 by car. A pulses never regained. was called at 332 a.m. on 09/10/2016 . Specialty Discharge - Follow Up or Referrals - Discharge Medications No Action Cinacalcet [Sensipar] 30 mg PO DAILY W/SUPPER Oxycodone HCl 10 mg PO BID PRN PRN Reason: Pain Morphine Sulfate 30 mg PO BID Famotidine Tab [Pepcid Tab] 20 mg PO DAILY Mirtazapine [Remeron] 45 mg PO BEDTIME Metoprolol Succinate Xl [Toprol Xl] 50 mg PO BEDTIME Amitriptyline [Elavil] 150 mg PO BEDTIME ALPRAZolam [Xanax] 0.5 mg PO BEDTIME PRN PRN Reason: Anxiety Sevelamer Carbonate Tab [Renvela Tab] 1,600 mg PO TID W/MEALS Verapamil HCl [Verapamil ER Tab] 2 tablet PO BEDTIME Tizanidine HCl [Zanaflex] 4 mg PO BEDTIME PRN PRN Reason: Spasms Discharge Plan - Discharge Data Condition at Discharge: - Discharge Medications No Action Cinacalcet [Sensipar] 30 mg PO DAILY W/SUPPER Oxycodone HCl 10 mg PO BID PRN PRN Reason: Pain Morphine Sulfate 30 mg PO BID Famotidine Tab [Pepcid Tab] 20 mg PO DAILY Mirtazapine [Remeron] 45 mg PO BEDTIME Metoprolol Succinate Xl [Toprol Xl] 50 mg PO BEDTIME Amitriptyline [Elavil] 150 mg PO BEDTIME ALPRAZolam [Xanax] 0.5 mg PO BEDTIME PRN PRN Reason: Anxiety Sevelamer Carbonate Tab [Renvela Tab] 1,600 mg PO TID W/MEALS Verapamil HCl [Verapamil ER Tab] 2 tablet PO BEDTIME Tizanidine HCl [Zanaflex] 4 mg PO BEDTIME PRN PRN Reason: Spasms - Follow Up or Referral - Forms/Instructions Exam - Constitutional Vitals: Period Temp Pulse Resp BP Sys/Sanchez Pulse Ox Last 24 Hr 96.8 F-97.9 F 6-127 3-35 83-129/33-89 82-100 Discharge Results Procedures and tests throughout hospitalization: Pending Orders 09/09/16 18:45 MRSA Screen Routine 09/10/16 04:00 CBC [Comp Blood Count Auto Diff] IN AM Renal Function Panel IN AM 09/11/16 04:00 CBC [Comp Blood Count Auto Diff] IN AM Renal Function Panel IN AM 09/12/16 04:00 CBC [Comp Blood Count Auto Diff] IN AM Renal Function Panel IN AM Labs on day of discharge: Labs from last 24 hours 09/10/16 09/09/16 09/09/16 00:53 21:05 18:51 ABG pH ABG pCO2 ABG pO2 ABG HCO3 ABG Total CO2 ABG O2 Saturation ABG Base Excess Sodium 138 Potassium 4.9 Chloride 100 Carbon Dioxide 16 L Anion Gap 26.9 H BUN 97 H Creatinine 7.80 H GFR Calculation 5 BUN/Creatinine Ratio 12.00 Glucose 68 L POC Glucose 94 149 H Calculated Osmolality 302.7 Calcium 9.1 Total Bilirubin 0.40 AST 74 H ALT 40 Alkaline Phosphatase 377 H Total Protein 6.2 L Albumin 1.8 L Globulin 4.4 H Albumin/Globulin Ratio 0.4 L Free T4 TSH 3rd Generation 09/09/16 09/09/16 09/09/16 18:40 17:37 14:37 ABG pH ABG pCO2 ABG pO2 ABG HCO3 ABG Total CO2 ABG O2 Saturation ABG Base Excess Sodium Potassium Chloride Carbon Dioxide Anion Gap BUN Creatinine GFR Calculation BUN/Creatinine Ratio Glucose POC Glucose 78 83 99 Calculated Osmolality Calcium Total Bilirubin AST ALT Alkaline Phosphatase Total Protein Albumin Globulin Albumin/Globulin Ratio Free T4 TSH 3rd Generation 09/09/16 09/09/16 09/09/16 13:52 10:01 09:22 ABG pH 7.392 ABG pCO2 31.1 L ABG pO2 71.4 L ABG HCO3 20.2 ABG Total CO2 16.9 L ABG O2 Saturation 93.3 L ABG Base Excess -5.1 L Sodium Potassium Chloride Carbon Dioxide Anion Gap BUN Creatinine GFR Calculation BUN/Creatinine Ratio Glucose POC Glucose 56 L 76 Calculated Osmolality Calcium Total Bilirubin AST ALT Alkaline Phosphatase Total Protein Albumin Globulin Albumin/Globulin Ratio Free T4 TSH 3rd Generation 09/09/16 09/09/16 09/09/16 07:19 07:11 04:17 ABG pH ABG pCO2 ABG pO2 ABG HCO3 ABG Total CO2 ABG O2 Saturation ABG Base Excess Sodium Potassium Chloride Carbon Dioxide Anion Gap BUN Creatinine GFR Calculation BUN/Creatinine Ratio Glucose POC Glucose 76 81 Calculated Osmolality Calcium Total Bilirubin AST ALT Alkaline Phosphatase Total Protein Albumin Globulin Albumin/Globulin Ratio Free T4 0.76 TSH 3rd Generation 4.310 H DS: Provider Date of admission: 09/02/16 11:48 Primary care physician: . No PCP Attending physician on admission: Zaheer Flood MD Consults: 09/08/16 08:47 Consult to Occupational Therapy [CONS] Routine Reason for Occupational Therapy: Weakness 09/08/16 10:28 Consult to Case Mgmt/Social Srvs [CONS] Routine Reason for Case Mgmt/Social Srvs: Swingbed/SNF/Pen[facility] 09/09/16 08:36 Consult to Physician [CONS] Routine Comment: severe constipation Consulting Provider: Winston Dias Person Notified: [place] Date Notified: 09/09/16 Time Notified: 12:05 09/02/16 12:34 Consult to Pharmacy [CONS] Routine Reason for Pharmacy Consult: Adjust Meds Renal Funct 09/02/16 13:38 Consult to Dietitian [CONS] Routine Reason for Dietitian: Dietary Consult 09/04/16 10:30 Consult to Wound Care - [place] [CONS] Routine Reason for Wound Care: Wound Care Management 09/05/16 08:45 PT [Consult to Physical Therapy] [CONS] Routine Reason for Physical Therapy: Evaluate and Treat Discharging clinician: Juan Carlos Gomez MD
[2016-09-10 04:45] VITALS: BP 87/61
[2016-09-10] MEDS ORDERED: SEVELAMER CARBONATE 800 MG TABLET PO SCH (08:00)
== END 2016-09-10 03:32 | disposition expired | DRG 871 ==
LOC: EDUNIT# → N.ED 09:53 → SUATTDRO 11:48 → N.EDINP 11:48 → N.5E 12:28 → N.CC 14:25 → N.5E 09-05 10:09 → N.CC 09-09 18:37
PROVIDERS: ADMIT Internal Medicine Cardiovascular Disease; ATTEND Internal Medicine